=== PATIENT | female | born 1945 | race African-American/Black ===

== ENCOUNTER 2021-03-17 04:16 | Inpatient (IN) | payer OTHER ==
[2021-03-17 04:25] VITALS: BMI 29.0
[2021-03-17] MEDS ORDERED: ALBUTEROL SO4 2.5/IPRATROPIUM 0.5 INH SOL 3 ML VIAL.NEB. NEB ONE ×2 (04:27→04:47)
[2021-03-17 05:20] LABS: VENOUS BASE EXCESS -1.4 mmol/L (-2-2); VENOUS O2 SATURATION 97.5 % (70-80); VENOUS PCO2 43.1 mmHg (38-52); VENOUS PH 7.364 (7.310-7.410)
[2021-03-17 05:34] LABS: BASO % 0.4 % (0-2.0); EOS % 2.1 % (0-4.5); HEMATOCRIT 29.9 % (32.4-45.2); HEMOGLOBIN 9.3 GM/dL (10.7-15.3); MCH 22.8 pg (25.7-33.7); MCHC 31.1 g/dl (32.0-36.0); MEAN CELL VOLUME 73.4 fl (80-96); MONO % 10.2 % (3.8-10.2); NEUT % 58.3 % (42.8-82.8); PLATELET COUNT 740 K/MM3 (134-434); RBC 4.08 M/mm3 (3.60-5.2); RDW 21.2 % (11.6-15.6); WHITE BLOOD COUNT 9.9 K/mm3 (4.0-10.0)
[2021-03-17] MEDS ORDERED: SODIUM CHLORIDE 0.9% 500 ML INFUS.BAG IV ONE (05:37)
[2021-03-17] MEDS ORDERED: PIPERACILLIN/TAZOB 3.375 GM 3.375 GM in DEXTROSE 5%-WATER - 50 ML IVPB ONE (05:38)
[2021-03-17] MEDS ORDERED: DEXAMETHASONE SOD PHOSPHATE 10 MG/1 ML VIAL IVPUSH ONE (05:38)
[2021-03-17 05:40] LABS: EPI CELLS 36 /uL (0-25.1); HYALINE CASTS 5 /uL (0-3.1); URINE APPEARANCE TURBID; URINE BACTERIA >9,000 /uL (0-1359); URINE BILIRUBIN NEGATIVE (NEGATIVE); URINE COLOR YELLOW; URINE GLUCOSE (UA) NEGATIVE (NEGATIVE); URINE KETONE TRACE (NEGATIVE); URINE LEUK ESTERASE 3+ (NEGATIVE); URINE NITRITE NEGATIVE (NEGATIVE); URINE PROTEIN 2+ (NEGATIVE); URINE RBC 2980 /uL (0-23.9); URINE WBC 1242 /uL (0-25.8)
[2021-03-17] MEDS ORDERED: morphine SULFATE 4 MG/ML VIAL ONE (05:40)
[2021-03-17] MEDS ORDERED: DEXAMETHASONE SOD PHOSPHATE 10 MG/1 ML VIAL ONE (05:41)
[2021-03-17 05:53] LABS: CHLORIDE 102 mmol/L (98-107); SODIUM 135 mmol/L (136-145)
[2021-03-17 05:56] LABS: ALBUMIN 2.7 g/dl (3.4-5.0); ANION GAP 6 MMOL/L (8-16); BLOOD UREA NITROGEN 18.4 mg/dL (7-18); CALCIUM 8.5 mg/dL (8.5-10.1); CO2 27 mmol/L (21-32); GLUCOSE,RANDOM 120 mg/dL (74-106)
[2021-03-17 06:00] LABS: CREATININE 0.6 mg/dL (0.55-1.3); SGOT/AST 17 U/L (15-37); SGPT/ALT 15 U/L (13-61)
[2021-03-17] MEDS ORDERED: ACETAMINOPHEN INJECTION 100 ML IVPB ONE (06:00)
[2021-03-17] MEDS ORDERED: MAGNESIUM SULF 50% (8.12 MEQ/2 ML-1 GM VIAL) IVPB ONE (06:00)
[2021-03-17] MEDS ORDERED: PIPERACILLIN/TAZOB 3.375 GM 3.375 GM/50 ML BAG IVPB ONE (06:00)
[2021-03-17 06:01] LABS: BILIRUBIN,TOTAL 0.3 mg/dL (0.2-1); TOT PROT 8.1 g/dl (6.4-8.2)
[2021-03-17 06:03] LABS: ALK PHOS 121 U/L (45-117)
[2021-03-17] MEDS ORDERED: MAGNESIUM SULFATE IN WATER 2 GM/50 ML IVPB IVPB ONE (06:18)
[2021-03-17] MEDS ORDERED: ACETAMINOPHEN 1000 MG/100 ML VIAL (NON FORMULARY) IVPB ONE (06:42)
[2021-03-17 11:41] LABS: ANISOCYTOSIS 1+; MACROCYTOSIS 0; OVALOCYTE 1+; PLATELET ESTIMATE INCREASED; TEAR DROP CELLS 1+
[2021-03-17] MEDS ORDERED: LORazepam 0.5 MG TABLET PEG PRN (17:39)
[2021-03-17] MEDS ORDERED: ACETAMINOPHEN 325 MG TABLET (FP) PO PRN (17:39)
[2021-03-17] MEDS ORDERED: D5-1/2NS+20 MEQ KCL - 20 MEQ/1,000 ML INFUS.BAG IV SCH (17:45)
[2021-03-17] MEDS: ALBUTEROL SO4 2.5/IPRATROPIUM 0.5 INH SOL 3 ML VIAL.NEB. NEB SCH ×2 (18:49→21:11)
[2021-03-17] MEDS ORDERED: DEXTROSE 5%-WATER - 50 ML IVPB ONE (18:49)
[2021-03-17] MEDS ORDERED: PIPERACILLIN/TAZOBACTAM 3.375 GM VIAL IVPB ONE (18:49)
[2021-03-17] MEDS: PIPERACILLIN/TAZOB 3.375 GM 3.375 GM in DEXTROSE 5%-WATER - 50 ML IVPB SCH (19:04)
[2021-03-17] MEDS: hydrALAZINE HCL 10 MG TABLET PEG SCH (22:17)
[2021-03-17] MEDS: levETIRAcetam 500 MG/5 ML ORAL SOLUTION (UNIT-DOSE CUPS) PEG SCH (22:17)
[2021-03-17] MEDS: METOPROLOL TARTRATE 25 MG TABLET (FP) PEG SCH (22:17)
[2021-03-18] MEDS ORDERED: PIPERACILLIN/TAZOBACTAM 3.375 GM VIAL IVPB ONE ×3 (01:11→17:44)
[2021-03-18] MEDS ORDERED: DEXTROSE 5%-WATER - 50 ML IVPB ONE ×3 (01:11→17:45)
[2021-03-18] MEDS: PIPERACILLIN/TAZOB 3.375 GM 3.375 GM in DEXTROSE 5%-WATER - 50 ML IVPB SCH ×3 (01:31→18:02)
[2021-03-18] MEDS: ALBUTEROL SO4 2.5/IPRATROPIUM 0.5 INH SOL 3 ML VIAL.NEB. NEB SCH ×3 (09:10→20:15)
[2021-03-18] MEDS ORDERED: FAMOTIDINE 20 MG TABLET PEG SCH (10:00)
[2021-03-18 10:19] LABS: BASO % 0.5 % (0-2.0); EOS % 0.7 % (0-4.5); HEMATOCRIT 22.6 % (32.4-45.2); HEMOGLOBIN 7.1 GM/dL (10.7-15.3); LYMPH % 24.5 % (8-40); MCH 23.3 pg (25.7-33.7); MCHC 31.5 g/dl (32.0-36.0); MEAN CELL VOLUME 74.2 fl (80-96); MEAN PLT VOLUME 9.1 fl (7.5-11.1); MONO % 12.1 % (3.8-10.2); NEUT % 62.2 % (42.8-82.8); PLATELET COUNT 550 K/MM3 (134-434); RBC 3.05 M/mm3 (3.60-5.2); RDW 20.6 % (11.6-15.6); WHITE BLOOD COUNT 5.4 K/mm3 (4.0-10.0)
[2021-03-18] MEDS: levETIRAcetam 500 MG/5 ML ORAL SOLUTION (UNIT-DOSE CUPS) PEG SCH ×2 (10:39→22:08)
[2021-03-18] MEDS: hydrALAZINE HCL 10 MG TABLET PEG SCH ×2 (10:39→22:08)
[2021-03-18] MEDS: amLODIPine BESYLATE 5 MG TABLET (FP) PEG SCH (10:39)
[2021-03-18] MEDS: METOPROLOL TARTRATE 25 MG TABLET (FP) PEG SCH ×2 (10:39→22:08)
[2021-03-18 10:47] LABS: ALBUMIN 2.3 g/dl (3.4-5.0); BLOOD UREA NITROGEN 16.3 mg/dL (7-18)
[2021-03-18 10:48] LABS: CALCIUM 8.4 mg/dL (8.5-10.1)
[2021-03-18 10:52] LABS: BILIRUBIN,TOTAL 0.3 mg/dL (0.2-1); TOT PROT 6.7 g/dl (6.4-8.2)
[2021-03-18 11:09] LABS: CREATININE 0.6 mg/dL (0.55-1.3)
[2021-03-18] MEDS ORDERED: ACETAMINOPHEN 650 MG/20.3 ML ORAL SOLUTION (CUPS) GT PRN (11:27)
[2021-03-18] MEDS: LEVOTHYROXINE NA 25 MCG TABLET (FP) GT SCH (11:40)
[2021-03-18] MEDS: COLLAGENASE CLOSTRIDIUM HIST. 30 GRAMS TUBE TP SCH (13:31)
[2021-03-18] MEDS ORDERED: ACETAMINOPHEN 650 MG/20.3 ML ORAL SOLUTION (CUPS) PEG PRN (15:27)
[2021-03-18] MEDS ORDERED: AMINO ACIDS/PROTEIN HYDROLYS 30 ML LIQUID.PKT PO SCH (17:30)
[2021-03-18] MEDS ORDERED: FERRIC CARBOXYMALTOSE 750 MG in SODIUM CHLORIDE 250 ML IVPB ONE (17:42)
[2021-03-18] MEDS ORDERED: PIPERACILLIN/TAZOB 3.375 GM 3.375 GM in DEXTROSE 5%-WATER - 50 ML IVPB SCH (18:00)
[2021-03-18] MEDS: AMINO ACIDS/PROTEIN HYDROLYS 30 ML LIQUID.PKT PEG SCH (18:02)
[2021-03-18 21:55] LABS: URINE APPEARANCE CLEAR; URINE BILIRUBIN NEGATIVE (NEGATIVE); URINE COLOR YELLOW; URINE GLUCOSE (UA) NEGATIVE (NEGATIVE); URINE KETONE NEGATIVE (NEGATIVE); URINE LEUK ESTERASE NEGATIVE (NEGATIVE); URINE NITRITE NEGATIVE (NEGATIVE); URINE PROTEIN NEGATIVE (NEGATIVE)
[2021-03-19] MEDS ORDERED: PIPERACILLIN/TAZOBACTAM 3.375 GM VIAL IVPB ONE ×2 (01:46→09:08)
[2021-03-19] MEDS ORDERED: DEXTROSE 5%-WATER - 50 ML IVPB ONE ×2 (01:46→09:08)
[2021-03-19] MEDS: PIPERACILLIN/TAZOB 3.375 GM 3.375 GM in DEXTROSE 5%-WATER - 50 ML IVPB SCH ×2 (02:05→09:10)
[2021-03-19] MEDS: LEVOTHYROXINE NA 25 MCG TABLET (FP) GT SCH (06:08)
[2021-03-19] MEDS: ALBUTEROL SO4 2.5/IPRATROPIUM 0.5 INH SOL 3 ML VIAL.NEB. NEB SCH ×4 (08:26→21:00)
[2021-03-19 08:52] LABS: BASO % 0.6 % (0-2.0); EOS % 1.2 % (0-4.5); HEMATOCRIT 25.8 % (32.4-45.2); HEMOGLOBIN 8.2 GM/dL (10.7-15.3); LYMPH % 30.2 % (8-40); MCH 23.3 pg (25.7-33.7); MCHC 31.9 g/dl (32.0-36.0); MEAN CELL VOLUME 73.1 fl (80-96); MEAN PLT VOLUME 8.6 fl (7.5-11.1); MONO % 12.7 % (3.8-10.2); NEUT % 55.3 % (42.8-82.8); PLATELET COUNT 629 K/MM3 (134-434); RBC 3.53 M/mm3 (3.60-5.2); RDW 21.3 % (11.6-15.6); WHITE BLOOD COUNT 5.2 K/mm3 (4.0-10.0)
[2021-03-19] MEDS: levETIRAcetam 500 MG/5 ML ORAL SOLUTION (UNIT-DOSE CUPS) PEG SCH ×2 (09:10→22:27)
[2021-03-19] MEDS: AMINO ACIDS/PROTEIN HYDROLYS 30 ML LIQUID.PKT PEG SCH ×3 (09:11→16:56)
[2021-03-19] MEDS: FERROUS SO4 300 MG/5 ML ORAL SOLN UNIT DOSE CUPS GT SCH (09:11)
[2021-03-19] MEDS: METOPROLOL TARTRATE 25 MG TABLET (FP) PEG SCH ×2 (09:11→22:27)
[2021-03-19] MEDS: COLLAGENASE CLOSTRIDIUM HIST. 30 GRAMS TUBE TP SCH (09:11)
[2021-03-19] MEDS: hydrALAZINE HCL 10 MG TABLET PEG SCH ×2 (09:11→22:27)
[2021-03-19] MEDS: amLODIPine BESYLATE 5 MG TABLET (FP) PEG SCH (09:11)
[2021-03-19] MEDS: FAMOTIDINE 40 MG/5 ML ORAL SUSPENSION PEG SCH (09:11)
[2021-03-19] MEDS: AMOX TR/POTASSIUM CLAVULANATE 600 MG/5 ML GT SCH (16:55)
[2021-03-20] MEDS: LEVOTHYROXINE NA 25 MCG TABLET (FP) GT SCH (06:14)
[2021-03-20] MEDS: ALBUTEROL SO4 2.5/IPRATROPIUM 0.5 INH SOL 3 ML VIAL.NEB. NEB SCH ×2 (07:35→11:32)
[2021-03-20 08:28] LABS: BASO % 0.5 % (0-2.0); EOS % 1.6 % (0-4.5); HEMATOCRIT 26.5 % (32.4-45.2); HEMOGLOBIN 8.4 GM/dL (10.7-15.3); LYMPH % 24.6 % (8-40); MCH 23.3 pg (25.7-33.7); MCHC 31.8 g/dl (32.0-36.0); MEAN CELL VOLUME 73.3 fl (80-96); MEAN PLT VOLUME 8.4 fl (7.5-11.1); MONO % 8.9 % (3.8-10.2); NEUT % 64.4 % (42.8-82.8); PLATELET COUNT 630 K/MM3 (134-434); RBC 3.62 M/mm3 (3.60-5.2); RDW 21.1 % (11.6-15.6); WHITE BLOOD COUNT 6.9 K/mm3 (4.0-10.0)
[2021-03-20 09:21] LABS: ANISOCYTOSIS 3+; MACROCYTOSIS 0; PLATELET ESTIMATE INCREASED
[2021-03-20] MEDS ORDERED: PT OWN MED DRAWER 7, Y5N ONE (09:50)
[2021-03-20] MEDS: AMINO ACIDS/PROTEIN HYDROLYS 30 ML LIQUID.PKT PEG SCH ×2 (10:26→16:03)
[2021-03-20] MEDS: hydrALAZINE HCL 10 MG TABLET PEG SCH (10:26)
[2021-03-20] MEDS: FAMOTIDINE 40 MG/5 ML ORAL SUSPENSION PEG SCH (10:26)
[2021-03-20] MEDS: levETIRAcetam 500 MG/5 ML ORAL SOLUTION (UNIT-DOSE CUPS) PEG SCH (10:26)
[2021-03-20] MEDS: FERROUS SO4 300 MG/5 ML ORAL SOLN UNIT DOSE CUPS GT SCH (10:26)
[2021-03-20] MEDS: amLODIPine BESYLATE 5 MG TABLET (FP) PEG SCH (10:26)
[2021-03-20] MEDS: METOPROLOL TARTRATE 25 MG TABLET (FP) PEG SCH (10:26)
[2021-03-20] MEDS: COLLAGENASE CLOSTRIDIUM HIST. 30 GRAMS TUBE TP SCH (10:28)
[2021-03-20] MEDS: AMOX TR/POTASSIUM CLAVULANATE 600 MG/5 ML GT SCH (10:28)
[2021-03-20 16:44] VITALS: BP 137/74; PULSE 97; TEMP 99.2
== END 2021-03-20 12:29 | DRG 689 ==
LOC: JER 04:16 → JERBED 07:19 → J5S 18:05
PROVIDERS: ADMIT Family Medicine; ATTEND Family Medicine
PROC: 5A1945Z Respiratory Ventilation, 24-96 Consecutive Hours (ICD-10-PCS; 2021-03-17)
PROC: 30233N1 Transfusion of Nonautologous Red Blood Cells into Peripheral Vein, Percutaneous Approach (ICD-10-PCS; principal; 2021-03-18)
DX: N39.0 Urinary tract infection, site not specified (principal); L89.94 Pressure ulcer of unspecified site, stage 4; J96.11 Chronic respiratory failure with hypoxia; Z99.11 Dependence on respirator [ventilator] status; Z93.0 Tracheostomy status; Z93.1 Gastrostomy status; I10 Essential (primary) hypertension; J44.9 Chronic obstructive pulmonary disease, unspecified; G40.909 Epilepsy, unspecified, not intractable, without status epilepticus; K21.9 Gastro-esophageal reflux disease without esophagitis; E03.9 Hypothyroidism, unspecified; D50.9 Iron deficiency anemia, unspecified; E66.9 Obesity, unspecified; Z68.29 Body mass index [BMI] 29.0-29.9, adult; E86.0 Dehydration
CPT/HCPCS: 36415; 71045-TC-FY; 80053; 81003; 82550; 82607; 82728; 82803; 83540; 83550; 83605; 83880; 84443; 84484; 85025; 87040; 87086; 93005; 93010; 94002; 94640; 97161-GP; 99285-25; C9803; J0131; J1100; J1439; U0003; U0005

== ENCOUNTER 2022-06-05 13:48 | Inpatient (IN) | payer OTHER ==
[2022-06-05] MEDS ORDERED: ACETAMINOPHEN 1000 MG/100 ML BAG IVPB ONE ×2 (14:13→21:35)
[2022-06-05] MEDS ORDERED: ACETAMINOPHEN INJECTION 100 ML IVPB ONE ×2 (14:33→21:37)
[2022-06-05] MEDS ORDERED: VANCOMYCIN 1 GM in D5W (PRE-DOCKED) 1,000 MG/250 ML IVPB ONE (14:56)
[2022-06-05] MEDS ORDERED: PIPERACILLIN/TAZOB 4.5 GM 4.5 GM in DEXTROSE 5%-WATER 100 ML IVPB ONE (14:56)
[2022-06-05] MEDS ORDERED: VANCOMYCIN/WATER FOR INJ (PEG) 1,000 MG/200 ML BAG IVPB ONE (16:07)
[2022-06-05] MEDS ORDERED: PIPERACILLIN IVPB ONE (16:07)
[2022-06-05] MEDS ORDERED: TAZOB IVPB ONE (16:07)
[2022-06-05 16:23] LABS: VENOUS BASE EXCESS 2.2 mmol/L (-2-2); VENOUS O2 SATURATION 46.3 % (70-80); VENOUS PCO2 44.5 mmHg (38-52); VENOUS PH 7.403 (7.310-7.410)
[2022-06-05 16:28] LABS: BASO % 0.3 % (0-2.0); EOS % 0.1 % (0-4.5); HEMATOCRIT 24.6 % (32.4-45.2); HEMOGLOBIN 7.8 GM/dL (10.7-15.3); LYMPH % 6.2 % (8-40); MCH 24.6 pg (25.7-33.7); MCHC 31.8 g/dl (32.0-36.0); MEAN CELL VOLUME 77.4 fl (80-96); MEAN PLT VOLUME 8.3 fl (7.5-11.1); MONO % 7.6 % (3.8-10.2); NEUT % 85.8 % (42.8-82.8); RBC 3.17 M/mm3 (3.60-5.2); RDW 17.9 % (11.6-15.6); WHITE BLOOD COUNT 24.2 K/mm3 (4.0-10.0)
[2022-06-05 16:32] LABS: EPI CELLS 25 /uL (0-25.1); HYALINE CASTS 2 /uL (0-3.1); PH,URINE 6.5 (5.0-8.0); URINE APPEARANCE CLOUDY; URINE BILIRUBIN NEGATIVE (NEGATIVE); URINE COLOR YELLOW; URINE GLUCOSE (UA) NEGATIVE (NEGATIVE); URINE KETONE NEGATIVE (NEGATIVE); URINE LEUK ESTERASE 3+ (NEGATIVE); URINE NITRITE POSITIVE (NEGATIVE); URINE PROTEIN 2+ (NEGATIVE); URINE RBC 19 /uL (0-23.9); URINE WBC 812 /uL (0-25.8)
[2022-06-05 16:40] LABS: INR 1.39 (0.83-1.09)
[2022-06-05 16:53] LABS: CHLORIDE 95 mmol/L (98-107); SODIUM 134 mmol/L (136-145)
[2022-06-05 16:55] LABS: ANION GAP 10 MMOL/L (8-16); BLOOD UREA NITROGEN 30.8 mg/dL (7-18); CO2 29 mmol/L (21-32); GLUCOSE,RANDOM 124 mg/dL (74-106); LIPASE 402 U/L (73-393); MAGNESIUM 2.2 mg/dL (1.8-2.4)
[2022-06-05 16:56] LABS: ALBUMIN 2.2 g/dl (3.4-5.0)
[2022-06-05 16:58] LABS: SGPT/ALT 32 U/L (13-61)
[2022-06-05 16:59] LABS: SGOT/AST 31 U/L (15-37)
[2022-06-05 17:00] LABS: BILIRUBIN,TOTAL 0.4 mg/dL (0.2-1)
[2022-06-05 17:01] LABS: ALK PHOS 168 U/L (45-117)
[2022-06-05 17:17] LABS: ANISOCYTOSIS 3+; MACROCYTOSIS 1+; PLATELET COUNT 1163 10^3/uL (134-434); PLATELET ESTIMATE INCREASED
[2022-06-05] MEDS ORDERED: SODIUM CHLORIDE 0.9% 500 ML INFUS.BAG IV ONE (17:39)
[2022-06-05] MEDS ORDERED: INSULIN REGULAR HUMAN 100 UNITS/ML *VIAL IVPUSH ONE (17:40)
[2022-06-05] MEDS ORDERED: DEXTROSE 50%-WATER - 25 GM/50 ML VIAL IVPUSH ONE (17:40)
[2022-06-05] MEDS ORDERED: CALCIUM GLUCONATE 10% - 1,000 MG/10 ML VIAL IVPB ONE (17:40)
[2022-06-05 17:48] LABS: URINE BACTERIA 130 /uL (0-1359)
[2022-06-05] MEDS ORDERED: DEXTROSE 50%-WATER 25 GM/50 ML DISP.SYRIN ONE (17:50)
[2022-06-05] MEDS ORDERED: CALCIUM GLUCONATE 10% - 1,000 MG/10 ML VIAL ONE (17:50)
[2022-06-05] MEDS ORDERED: SODIUM ZIRCONIUM CYCLOSILICATE (LOKELMA) 5 GM PACKET ONE (18:26)
[2022-06-05] MEDS ORDERED: SODIUM ZIRCONIUM CYCLOSILICATE (LOKELMA) 5 GM PACKET PO ONE (18:38)
[2022-06-05 22:11] LABS: BASO % 0.2 % (0-2.0); HEMATOCRIT 23.6 % (32.4-45.2); HEMOGLOBIN 7.6 GM/dL (10.7-15.3); LYMPH % 2.7 % (8-40); MCH 24.7 pg (25.7-33.7); MCHC 32.2 g/dl (32.0-36.0); MEAN CELL VOLUME 76.9 fl (80-96); MEAN PLT VOLUME 7.9 fl (7.5-11.1); MONO % 4.3 % (3.8-10.2); NEUT % 92.8 % (42.8-82.8); PLATELET COUNT 1077 10^3/uL (134-434); RBC 3.06 M/mm3 (3.60-5.2); RDW 18.1 % (11.6-15.6); WHITE BLOOD COUNT 20.6 K/mm3 (4.0-10.0)
[2022-06-05 22:26] LABS: BLOOD UREA NITROGEN 26.3 mg/dL (7-18); CALCIUM 8.1 mg/dL (8.5-10.1)
[2022-06-05 22:30] LABS: CREATININE 0.8 mg/dL (0.55-1.3)
[2022-06-05] MEDS ORDERED: levETIRAcetam 500 MG/5 ML INJECTION VIAL IVPB ONE ×2 (22:36→22:52)
[2022-06-05 23:10] LABS: ANISOCYTOSIS 1+; MACROCYTOSIS 1+; PLATELET ESTIMATE INCREASED
[2022-06-05 23:24] LABS: CALCIUM 8.1 mg/dL (8.5-10.1)
[2022-06-05 23:25] LABS: BLOOD UREA NITROGEN 27.1 mg/dL (7-18)
[2022-06-05 23:28] LABS: CREATININE 0.8 mg/dL (0.55-1.3)
[2022-06-06] MEDS ORDERED: ACETAMINOPHEN 1000 MG/100 ML BAG IVPB PRN (03:00)
[2022-06-06] MEDS ORDERED: levETIRAcetam 500 MG/5 ML INJECTION VIAL IVPB ONE ×2 (04:50→05:59)
[2022-06-06] MEDS ORDERED: ALBUTEROL SO4 2.5/IPRATROPIUM 0.5 INH SOL 3 ML VIAL.NEB. NEB PRN (05:05)
[2022-06-06] MEDS ORDERED: PIPERACILLIN/TAZOB 3.375 GM 3.375 GM/50 ML BAG IVPB ONE ×2 (05:55→10:21)
[2022-06-06] MEDS: PIPERACILLIN/TAZOB 3.375 GM 3.375 GM in DEXTROSE 5%-WATER - 50 ML IVPB SCH ×3 (05:55→22:14)
[2022-06-06] MEDS ORDERED: VANCOMYCIN/WATER FOR INJ (PEG) 1,000 MG/200 ML BAG IVPB ONE (06:03)
[2022-06-06] MEDS: VANCOMYCIN 1 GM/200 ML PREMIX BAG IVPB SCH ×2 (06:22→20:12)
[2022-06-06] MEDS ORDERED: LEVOTHYROXINE NA 25 MCG TABLET (FP) ONE (07:12)
[2022-06-06] MEDS: LEVOTHYROXINE NA 25 MCG TABLET (FP) GT SCH (07:25)
[2022-06-06] MEDS ORDERED: ACETAMINOPHEN INJECTION 100 ML IVPB ONE (07:37)
[2022-06-06 08:03] LABS: BASO % 0.6 % (0-2.0); HEMATOCRIT 22.9 % (32.4-45.2); HEMOGLOBIN 7.4 GM/dL (10.7-15.3); LYMPH % 5.3 % (8-40); MCHC 32.2 g/dl (32.0-36.0); MEAN CELL VOLUME 77.5 fl (80-96); MEAN PLT VOLUME 8.3 fl (7.5-11.1); MONO % 6.7 % (3.8-10.2); NEUT % 87.4 % (42.8-82.8); PLATELET COUNT 1012 10^3/uL (134-434); RBC 2.96 M/mm3 (3.60-5.2); RDW 17.4 % (11.6-15.6); WHITE BLOOD COUNT 18.9 K/mm3 (4.0-10.0)
[2022-06-06 08:14] LABS: CALCIUM 8.1 mg/dL (8.5-10.1); MAGNESIUM 2.3 mg/dL (1.8-2.4)
[2022-06-06 08:15] LABS: BLOOD UREA NITROGEN 25.8 mg/dL (7-18)
[2022-06-06 08:18] LABS: CREATININE 0.8 mg/dL (0.55-1.3); PHOSPHOROUS 2.9 mg/dL (2.5-4.9)
[2022-06-06 08:20] LABS: INR 1.4 (0.83-1.09); PROTHROMBIN TIME (PATIENT) 16.2 SEC (9.7-13.0)
[2022-06-06 08:23] LABS: ACTIVATED PTT 27.7 SECONDS (25.2-36.5)
[2022-06-06] MEDS ORDERED: ASPIRIN 81 MG CHEWABLE TABLETS ONE (10:12)
[2022-06-06] MEDS: AMINO ACIDS/PROTEIN HYDROLYS 30 ML LIQUID.PKT PEG SCH ×3 (10:19→18:12)
[2022-06-06] MEDS: levETIRAcetam 500 MG/5 ML ORAL SOLUTION (UNIT-DOSE CUPS) PEG SCH ×2 (10:20→22:15)
[2022-06-06] MEDS: ASCORBIC ACID 500 MG/5 ML UNIT DOSE CUP PEG SCH (10:20)
[2022-06-06] MEDS: FERROUS SO4 300 MG/5 ML ORAL SOLN UNIT DOSE CUPS GT SCH (10:20)
[2022-06-06] MEDS: DOCUSATE NA 100 MG/10 ML UNIT-DOSE CUPS PEG SCH ×2 (10:20→22:15)
[2022-06-06] MEDS: FAMOTIDINE 40 MG/5 ML ORAL SUSPENSION PEG SCH (10:20)
[2022-06-06] MEDS: ASPIRIN 81 MG CHEWABLE TABLETS PEG SCH (10:20)
[2022-06-06] MEDS ORDERED: FUROSEMIDE 40 MG/4 ML INJECTABLE VIAL IVPUSH ONE (11:20)
[2022-06-06] MEDS ORDERED: SODIUM ZIRCONIUM CYCLOSILICATE (LOKELMA) 5 GM PACKET PO ONE (17:55)
[2022-06-06] MEDS ORDERED: ACETAMINOPHEN 650 MG/20.3 ML ORAL SOLUTION (CUPS) ONE (18:09)
[2022-06-06] MEDS: ACETAMINOPHEN 650 MG/20.3 ML ORAL SOLUTION (CUPS) PEG PRN (18:11)
[2022-06-06] MEDS: POLYETHYLENE GLYCOL (HEALTHYLAX) 3350 17 GM PACKET GT SCH (22:15)
[2022-06-06] MEDS: BETAMETHASONE VALERATE 0.1% CREAM 15 GM TUBE TP SCH (22:57)
[2022-06-07] MEDS ORDERED: ACETAMINOPHEN 650 MG/20.3 ML ORAL SOLUTION (CUPS) PO PRN (03:00)
[2022-06-07] MEDS ORDERED: VANCOMYCIN 1 GM/200 ML PREMIX BAG IVPB SCH (04:00)
[2022-06-07] MEDS: ACETAMINOPHEN 650 MG/20.3 ML ORAL SOLUTION (CUPS) PEG PRN ×3 (06:30→23:32)
[2022-06-07] MEDS: LEVOTHYROXINE NA 25 MCG TABLET (FP) GT SCH (06:32)
[2022-06-07] MEDS: PANTOPRAZOLE SODIUM 40 MG VIAL IVPUSH SCH (10:44)
[2022-06-07] MEDS: DOCUSATE NA 100 MG/10 ML UNIT-DOSE CUPS PEG SCH ×2 (11:00→23:16)
[2022-06-07] MEDS: FERROUS SO4 300 MG/5 ML ORAL SOLN UNIT DOSE CUPS GT SCH (11:00)
[2022-06-07] MEDS: POLYETHYLENE GLYCOL (HEALTHYLAX) 3350 17 GM PACKET GT SCH ×2 (11:00→23:15)
[2022-06-07] MEDS: levETIRAcetam 500 MG/5 ML ORAL SOLUTION (UNIT-DOSE CUPS) PEG SCH ×2 (11:00→23:16)
[2022-06-07] MEDS: FAMOTIDINE 40 MG/5 ML ORAL SUSPENSION PEG SCH (11:00)
[2022-06-07] MEDS: ASCORBIC ACID 500 MG/5 ML UNIT DOSE CUP PEG SCH (11:00)
[2022-06-07] MEDS: AMINO ACIDS/PROTEIN HYDROLYS 30 ML LIQUID.PKT PEG SCH ×3 (11:01→17:41)
[2022-06-07] MEDS: ASPIRIN 81 MG CHEWABLE TABLETS PEG SCH (11:01)
[2022-06-07] MEDS ORDERED: PIPERACILLIN/TAZOB 3.375 GM 3.375 GM in DEXTROSE 5%-WATER - 50 ML IVPB SCH (12:15)
[2022-06-07] MEDS: MEROPENEM 1 GM in DEXTROSE 5%-WATER 100 ML IVPB SCH ×2 (12:53→18:22)
[2022-06-07] MEDS: PIPERACILLIN/TAZOB 3.375 GM 3.375 GM in DEXTROSE 5%-WATER - 50 ML IVPB SCH ×2 (12:59→13:00)
[2022-06-07 13:08] VITALS: BMI 24.3
[2022-06-07] MEDS: BETAMETHASONE VALERATE 0.1% CREAM 15 GM TUBE TP SCH (23:16)
[2022-06-08] MEDS: MEROPENEM 1 GM in DEXTROSE 5%-WATER 100 ML IVPB SCH ×3 (01:34→17:27)
[2022-06-08] MEDS: LEVOTHYROXINE NA 25 MCG TABLET (FP) GT SCH (06:10)
[2022-06-08] MEDS ORDERED: ACETAMINOPHEN 1000 MG/100 ML BAG IVPB ONE (09:11)
[2022-06-08] MEDS: PANTOPRAZOLE SODIUM 40 MG VIAL IVPUSH SCH (10:40)
[2022-06-08] MEDS: DEXTROSE 5%-NORMAL SALINE 1,000 ML IV SCH (10:40)
[2022-06-08] MEDS: ASCORBIC ACID 500 MG/5 ML UNIT DOSE CUP PEG SCH (10:41)
[2022-06-08] MEDS: levETIRAcetam 500 MG/5 ML ORAL SOLUTION (UNIT-DOSE CUPS) PEG SCH ×2 (10:41→21:51)
[2022-06-08] MEDS: FERROUS SO4 300 MG/5 ML ORAL SOLN UNIT DOSE CUPS GT SCH (10:41)
[2022-06-08] MEDS: POLYETHYLENE GLYCOL (HEALTHYLAX) 3350 17 GM PACKET GT SCH ×2 (10:41→21:52)
[2022-06-08] MEDS: AMINO ACIDS/PROTEIN HYDROLYS 30 ML LIQUID.PKT PEG SCH ×3 (10:41→17:27)
[2022-06-08] MEDS: FAMOTIDINE 40 MG/5 ML ORAL SUSPENSION PEG SCH (10:42)
[2022-06-08] MEDS: DOCUSATE NA 100 MG/10 ML UNIT-DOSE CUPS PEG SCH ×2 (10:43→21:51)
[2022-06-08] MEDS: ASPIRIN 81 MG CHEWABLE TABLETS PEG SCH (10:44)
[2022-06-08 11:20] LABS: HEMATOCRIT 26.3 % (32.4-45.2); HEMOGLOBIN 8.5 GM/dL (10.7-15.3); MCHC 32.5 g/dl (32.0-36.0); MEAN CELL VOLUME 77.1 fl (80-96); MEAN PLT VOLUME 8.4 fl (7.5-11.1); PLATELET COUNT 981 10^3/uL (134-434); RBC 3.41 M/mm3 (3.60-5.2); RDW 18.1 % (11.6-15.6); WHITE BLOOD COUNT 20.2 K/mm3 (4.0-10.0)
[2022-06-08 11:50] LABS: ALBUMIN 1.9 g/dl (3.4-5.0); BLOOD UREA NITROGEN 23.4 mg/dL (7-18); CALCIUM 8.6 mg/dL (8.5-10.1)
[2022-06-08 11:53] LABS: BILIRUBIN,TOTAL 0.6 mg/dL (0.2-1); CREATININE 0.6 mg/dL (0.55-1.3); TOT PROT 6.5 g/dl (6.4-8.2)
[2022-06-08 12:41] LABS: ANISOCYTOSIS 0; HELMET CELLS 0; HOWELL-JOLLY BODIES 0; MACROCYTOSIS 0; OVALOCYTE 0; ROULEAU 0; SICKELED CELLS 0; TARGET CELLS 0; TEAR DROP CELLS 0; TOXIC GRANULATION 0
[2022-06-08] MEDS: BETAMETHASONE VALERATE 0.1% CREAM 15 GM TUBE TP SCH (21:52)
[2022-06-09] MEDS: DEXTROSE 5%-NORMAL SALINE 1,000 ML IV SCH ×3 (01:27→17:08)
[2022-06-09] MEDS: MEROPENEM 1 GM in DEXTROSE 5%-WATER 100 ML IVPB SCH ×3 (01:28→17:17)
[2022-06-09] MEDS: LEVOTHYROXINE NA 25 MCG TABLET (FP) GT SCH (06:22)
[2022-06-09] MEDS: ACETAMINOPHEN 650 MG/20.3 ML ORAL SOLUTION (CUPS) PEG PRN ×2 (06:25→18:48)
[2022-06-09] MEDS: PANTOPRAZOLE SODIUM 40 MG VIAL IVPUSH SCH (09:59)
[2022-06-09] MEDS: DOCUSATE NA 100 MG/10 ML UNIT-DOSE CUPS PEG SCH ×2 (10:58→22:05)
[2022-06-09] MEDS: AMINO ACIDS/PROTEIN HYDROLYS 30 ML LIQUID.PKT PEG SCH ×3 (10:58→17:18)
[2022-06-09] MEDS: ASPIRIN 81 MG CHEWABLE TABLETS PEG SCH (10:58)
[2022-06-09] MEDS: levETIRAcetam 500 MG/5 ML ORAL SOLUTION (UNIT-DOSE CUPS) PEG SCH ×2 (10:58→22:05)
[2022-06-09] MEDS: POLYETHYLENE GLYCOL (HEALTHYLAX) 3350 17 GM PACKET GT SCH ×2 (10:59→22:05)
[2022-06-09] MEDS: ASCORBIC ACID 500 MG/5 ML UNIT DOSE CUP PEG SCH (10:59)
[2022-06-09] MEDS: FAMOTIDINE 40 MG/5 ML ORAL SUSPENSION PEG SCH (10:59)
[2022-06-09] MEDS: FERROUS SO4 300 MG/5 ML ORAL SOLN UNIT DOSE CUPS GT SCH (10:59)
[2022-06-09] MEDS: SODIUM HYPOCHLORITE 0.25%- 473 ML BULK BOTTLE TP SCH (18:29)
[2022-06-09] MEDS: BETAMETHASONE VALERATE 0.1% CREAM 15 GM TUBE TP SCH (22:04)
[2022-06-09] MEDS ORDERED: FENTANYL PATCH WASTE MC PRN (22:25)
[2022-06-09] MEDS ORDERED: SCOPOLAMINE HYDROBROMIDE 1 PATCH PATCH.TD72 TD SCH (22:30)
[2022-06-09] MEDS ORDERED: fentaNYL 25mcg/hr PATCH.TD72 TD SCH (22:30)
[2022-06-10] MEDS: LEVOTHYROXINE NA 25 MCG TABLET (FP) GT SCH (06:26)
[2022-06-10] MEDS: POLYETHYLENE GLYCOL (HEALTHYLAX) 3350 17 GM PACKET GT SCH (10:31)
[2022-06-10] MEDS: DEXTROSE 5%-NORMAL SALINE 1,000 ML IV SCH (10:32)
[2022-06-10] MEDS: ASCORBIC ACID 500 MG/5 ML UNIT DOSE CUP PEG SCH (10:32)
[2022-06-10] MEDS: levETIRAcetam 500 MG/5 ML ORAL SOLUTION (UNIT-DOSE CUPS) PEG SCH ×2 (10:33→21:20)
[2022-06-10] MEDS: SODIUM HYPOCHLORITE 0.25%- 473 ML BULK BOTTLE TP SCH (10:33)
[2022-06-10 13:48] LABS: ALBUMIN 1.7 g/dl (3.4-5.0)
[2022-06-10 13:50] LABS: BLOOD UREA NITROGEN 11.4 mg/dL (7-18)
[2022-06-10 13:52] LABS: CALCIUM 8.2 mg/dL (8.5-10.1)
[2022-06-10 13:53] LABS: CREATININE 0.4 mg/dL (0.55-1.3)
[2022-06-10 13:55] LABS: BILIRUBIN,TOTAL 0.5 mg/dL (0.2-1); TOT PROT 5.9 g/dl (6.4-8.2)
[2022-06-10] MEDS: BETAMETHASONE VALERATE 0.1% CREAM 15 GM TUBE TP SCH (21:20)
[2022-06-11] MEDS: DEXTROSE 5%-NORMAL SALINE 1,000 ML IV SCH ×2 (01:07→10:48)
[2022-06-11] MEDS: LEVOTHYROXINE NA 25 MCG TABLET (FP) GT SCH (06:18)
[2022-06-11] MEDS: levETIRAcetam 500 MG/5 ML ORAL SOLUTION (UNIT-DOSE CUPS) PEG SCH ×2 (11:00→21:09)
[2022-06-11] MEDS: ASCORBIC ACID 500 MG/5 ML UNIT DOSE CUP PEG SCH (11:00)
[2022-06-11] MEDS: SODIUM HYPOCHLORITE 0.25%- 473 ML BULK BOTTLE TP SCH (11:03)
[2022-06-11] MEDS ORDERED: KCL 10 MEQ IVPB 10 MEQ/100 ML INFUS.BAG IVPB SCH (15:00)
[2022-06-11] MEDS: D5-1/2NS+20 MEQ KCL - 20 MEQ/1,000 ML INFUS.BAG IV SCH (15:00)
[2022-06-11] MEDS: ACETAMINOPHEN 650 MG/20.3 ML ORAL SOLUTION (CUPS) PEG PRN (21:09)
[2022-06-11] MEDS: BETAMETHASONE VALERATE 0.1% CREAM 15 GM TUBE TP SCH (23:18)
[2022-06-12] MEDS: LEVOTHYROXINE NA 25 MCG TABLET (FP) GT SCH (06:07)
[2022-06-12] MEDS ORDERED: AMINO ACIDS/PROTEIN HYDROLYS 30 ML LIQUID.PKT PO SCH (08:00)
[2022-06-12] MEDS: D5-1/2NS+20 MEQ KCL - 20 MEQ/1,000 ML INFUS.BAG IV SCH ×2 (08:15→14:40)
[2022-06-12] MEDS: ASCORBIC ACID 500 MG/5 ML UNIT DOSE CUP PEG SCH (09:05)
[2022-06-12] MEDS: levETIRAcetam 500 MG/5 ML ORAL SOLUTION (UNIT-DOSE CUPS) PEG SCH (09:06)
[2022-06-12 09:17] LABS: CALCIUM 8.6 mg/dL (8.5-10.1)
[2022-06-12 09:18] LABS: ALBUMIN 1.9 g/dl (3.4-5.0); BLOOD UREA NITROGEN 7.8 mg/dL (7-18)
[2022-06-12 09:21] LABS: CREATININE 0.4 mg/dL (0.55-1.3)
[2022-06-12 09:22] LABS: BILIRUBIN,TOTAL 0.6 mg/dL (0.2-1)
[2022-06-12 09:23] LABS: TOT PROT 6.8 g/dl (6.4-8.2)
[2022-06-12] MEDS ORDERED: ZINC SULFATE 220 MG CAPSULE (FP) PO SCH (10:00)
[2022-06-12] MEDS ORDERED: MULTIVIT-MINERALS ORAL LIQUID PEG SCH (10:00)
[2022-06-12] MEDS ORDERED: COLLAGENASE CLOSTRIDIUM HIST. 30 GRAMS TUBE TP SCH (10:00)
[2022-06-12] MEDS: fentaNYL 25mcg/hr PATCH.TD72 TD SCH (11:21)
[2022-06-12] MEDS: SCOPOLAMINE HYDROBROMIDE 1 PATCH PATCH.TD72 TD SCH (11:27)
[2022-06-13] MEDS: levETIRAcetam 500 MG/5 ML ORAL SOLUTION (UNIT-DOSE CUPS) PEG SCH ×3 (10:53→21:04)
[2022-06-13] MEDS: D5-1/2NS+20 MEQ KCL - 20 MEQ/1,000 ML INFUS.BAG IV SCH (21:04)
[2022-06-13] MEDS: ACETAMINOPHEN 650 MG/20.3 ML ORAL SOLUTION (CUPS) PEG PRN (21:06)
[2022-06-14] MEDS: levETIRAcetam 500 MG/5 ML ORAL SOLUTION (UNIT-DOSE CUPS) PEG SCH ×2 (11:36→22:45)
[2022-06-14] MEDS: D5-1/2NS+20 MEQ KCL - 20 MEQ/1,000 ML INFUS.BAG IV SCH (14:39)
[2022-06-14] MEDS: ACETAMINOPHEN 650 MG/20.3 ML ORAL SOLUTION (CUPS) PEG PRN (17:51)
[2022-06-15] MEDS: levETIRAcetam 500 MG/5 ML ORAL SOLUTION (UNIT-DOSE CUPS) PEG SCH ×2 (10:04→21:36)
[2022-06-15] MEDS: fentaNYL 25mcg/hr PATCH.TD72 TD SCH (12:44)
[2022-06-15] MEDS: SCOPOLAMINE HYDROBROMIDE 1 PATCH PATCH.TD72 TD SCH (12:45)
[2022-06-15] MEDS: D5-1/2NS+20 MEQ KCL - 20 MEQ/1,000 ML INFUS.BAG IV SCH (14:32)
[2022-06-15] MEDS: ACETAMINOPHEN 650 MG/20.3 ML ORAL SOLUTION (CUPS) PEG PRN (18:51)
[2022-06-16] MEDS: D5-1/2NS+20 MEQ KCL - 20 MEQ/1,000 ML INFUS.BAG IV SCH (02:27)
[2022-06-16] MEDS: ACETAMINOPHEN 650 MG/20.3 ML ORAL SOLUTION (CUPS) PEG PRN ×3 (02:49→22:21)
[2022-06-16] MEDS: levETIRAcetam 500 MG/5 ML ORAL SOLUTION (UNIT-DOSE CUPS) PEG SCH ×2 (10:05→22:01)
[2022-06-16 15:55] LABS: ALBUMIN 1.7 g/dl (3.4-5.0); BILIRUBIN,TOTAL 1.9 mg/dL (0.2-1); BLOOD UREA NITROGEN 4.4 mg/dL (7-18); CALCIUM 8.1 mg/dL (8.5-10.1); CREATININE 0.4 mg/dL (0.55-1.3); TOT PROT 6.1 g/dl (6.4-8.2)
[2022-06-16] MEDS: AMINO ACIDS/PROTEIN HYDROLYS 30 ML LIQUID.PKT PEG SCH (17:19)
[2022-06-17 09:30] LABS: ALBUMIN 1.6 g/dl (3.4-5.0); BLOOD UREA NITROGEN 7.8 mg/dL (7-18)
[2022-06-17 09:33] LABS: CREATININE 0.4 mg/dL (0.55-1.3)
[2022-06-17 09:35] LABS: BILIRUBIN,TOTAL 0.5 mg/dL (0.2-1); TOT PROT 6.4 g/dl (6.4-8.2)
[2022-06-17 10:31] LABS: HEMATOCRIT 24.1 % (32.4-45.2); HEMOGLOBIN 7.9 GM/dL (10.7-15.3); MCH 25.2 pg (25.7-33.7); MCHC 32.6 g/dl (32.0-36.0); MEAN CELL VOLUME 77.3 fl (80-96); MEAN PLT VOLUME 8.3 fl (7.5-11.1); PLATELET COUNT 470 10^3/uL (134-434); RBC 3.13 M/mm3 (3.60-5.2); RDW 19.1 % (11.6-15.6); WHITE BLOOD COUNT 15.3 K/mm3 (4.0-10.0)
[2022-06-17] MEDS: levETIRAcetam 500 MG/5 ML ORAL SOLUTION (UNIT-DOSE CUPS) PEG SCH ×2 (11:19→22:34)
[2022-06-17] MEDS: MULTIVIT-MINERALS ORAL LIQUID GT SCH (11:19)
[2022-06-17] MEDS: AMINO ACIDS/PROTEIN HYDROLYS 30 ML LIQUID.PKT PEG SCH ×3 (11:21→17:47)
[2022-06-17] MEDS: ACETAMINOPHEN 650 MG/20.3 ML ORAL SOLUTION (CUPS) PEG PRN ×2 (11:57→18:15)
[2022-06-17 13:43] LABS: EPI CELLS 3 /uL (0-25.1); HYALINE CASTS 7 /uL (0-3.1); PH,URINE 5.5 (5.0-8.0); URINE APPEARANCE CLEAR; URINE BACTERIA >9,000 /uL (0-1359); URINE BILIRUBIN NEGATIVE (NEGATIVE); URINE COLOR DK YELLOW; URINE GLUCOSE (UA) NEGATIVE (NEGATIVE); URINE KETONE NEGATIVE (NEGATIVE); URINE LEUK ESTERASE 2+ (NEGATIVE); URINE NITRITE POSITIVE (NEGATIVE); URINE PROTEIN 1+ (NEGATIVE); URINE RBC 5 /uL (0-23.9); URINE WBC 176 /uL (0-25.8)
[2022-06-17] MEDS: COLLAGENASE CLOSTRIDIUM HIST. 30 GRAMS TUBE TP SCH (17:45)
[2022-06-17] MEDS: SODIUM HYPOCHLORITE 0.5% 473 ML- BULK BOTTLE TP SCH ×2 (17:48→17:56)
[2022-06-17] MEDS ORDERED: PIPERACILLIN/TAZOB 3.375 GM 3.375 GM in DEXTROSE 5%-WATER - 50 ML IVPB SCH (18:00)
[2022-06-17] MEDS: PIPERACILLIN/TAZOB 4.5 GM 4.5 GM in DEXTROSE 5%-WATER 100 ML IVPB SCH (18:13)
[2022-06-18] MEDS: PIPERACILLIN/TAZOB 4.5 GM 4.5 GM in DEXTROSE 5%-WATER 100 ML IVPB SCH ×3 (01:39→17:13)
[2022-06-18] MEDS: AMINO ACIDS/PROTEIN HYDROLYS 30 ML LIQUID.PKT PEG SCH ×3 (09:15→17:13)
[2022-06-18 09:49] LABS: BASO % 0.3 % (0-2.0); EOS % 0.1 % (0-4.5); HEMATOCRIT 21.4 % (32.4-45.2); HEMOGLOBIN 7.1 GM/dL (10.7-15.3); LYMPH % 8.7 % (8-40); MCH 25.6 pg (25.7-33.7); MCHC 33.4 g/dl (32.0-36.0); MEAN CELL VOLUME 76.6 fl (80-96); MEAN PLT VOLUME 7.8 fl (7.5-11.1); MONO % 9.9 % (3.8-10.2); PLATELET COUNT 455 10^3/uL (134-434); RBC 2.79 M/mm3 (3.60-5.2); RDW 18.7 % (11.6-15.6); WHITE BLOOD COUNT 13.5 K/mm3 (4.0-10.0)
[2022-06-18] MEDS: MULTIVIT-MINERALS ORAL LIQUID GT SCH (10:14)
[2022-06-18] MEDS: ACETAMINOPHEN 650 MG/20.3 ML ORAL SOLUTION (CUPS) PEG PRN (10:18)
[2022-06-18] MEDS: levETIRAcetam 500 MG/5 ML ORAL SOLUTION (UNIT-DOSE CUPS) PEG SCH ×2 (10:19→21:45)
[2022-06-18 10:28] LABS: ALBUMIN 1.5 g/dl (3.4-5.0); BLOOD UREA NITROGEN 13.2 mg/dL (7-18)
[2022-06-18 10:31] LABS: BILIRUBIN,TOTAL 0.5 mg/dL (0.2-1); CREATININE 0.5 mg/dL (0.55-1.3); TOT PROT 5.9 g/dl (6.4-8.2)
[2022-06-18] MEDS: SCOPOLAMINE HYDROBROMIDE 1 PATCH PATCH.TD72 TD SCH (12:51)
[2022-06-18] MEDS: fentaNYL 25mcg/hr PATCH.TD72 TD SCH (12:51)
[2022-06-18] MEDS: FENTANYL PATCH WASTE TD PRN (12:52)
[2022-06-18] MEDS: SODIUM HYPOCHLORITE 0.5% 473 ML- BULK BOTTLE TP SCH (12:57)
[2022-06-18] MEDS: COLLAGENASE CLOSTRIDIUM HIST. 30 GRAMS TUBE TP SCH (12:58)
[2022-06-19] MEDS: PIPERACILLIN/TAZOB 4.5 GM 4.5 GM in DEXTROSE 5%-WATER 100 ML IVPB SCH ×2 (02:00→10:02)
[2022-06-19] MEDS: levETIRAcetam 500 MG/5 ML ORAL SOLUTION (UNIT-DOSE CUPS) PEG SCH ×2 (10:02→22:11)
[2022-06-19] MEDS: AMINO ACIDS/PROTEIN HYDROLYS 30 ML LIQUID.PKT PEG SCH ×3 (10:02→17:26)
[2022-06-19] MEDS: MULTIVIT-MINERALS ORAL LIQUID GT SCH (10:03)
[2022-06-19] MEDS: COLLAGENASE CLOSTRIDIUM HIST. 30 GRAMS TUBE TP SCH (11:31)
[2022-06-19] MEDS: SODIUM HYPOCHLORITE 0.5% 473 ML- BULK BOTTLE TP SCH (11:32)
[2022-06-19 11:44] LABS: HEMATOCRIT 24.5 % (32.4-45.2); HEMOGLOBIN 7.6 GM/dL (10.7-15.3); MCH 24.8 pg (25.7-33.7); MCHC 31.2 g/dl (32.0-36.0); MEAN CELL VOLUME 79.7 fl (80-96); MEAN PLT VOLUME 8.5 fl (7.5-11.1); PLATELET COUNT 477 10^3/uL (134-434); RBC 3.08 M/mm3 (3.60-5.2); RDW 19.1 % (11.6-15.6); WHITE BLOOD COUNT 11.1 K/mm3 (4.0-10.0)
[2022-06-19 12:14] LABS: ALBUMIN 1.6 g/dl (3.4-5.0); BLOOD UREA NITROGEN 13.2 mg/dL (7-18)
[2022-06-19 12:16] LABS: CREATININE 0.5 mg/dL (0.55-1.3)
[2022-06-19 12:18] LABS: BILIRUBIN,TOTAL 0.5 mg/dL (0.2-1); TOT PROT 6.3 g/dl (6.4-8.2)
[2022-06-19] MEDS: MEROPENEM 1 GM in DEXTROSE 5%-WATER 100 ML IVPB SCH (17:26)
[2022-06-20] MEDS: ACETAMINOPHEN 650 MG/20.3 ML ORAL SOLUTION (CUPS) PEG PRN (00:07)
[2022-06-20] MEDS: MEROPENEM 1 GM in DEXTROSE 5%-WATER 100 ML IVPB SCH ×3 (01:30→17:26)
[2022-06-20] MEDS: AMINO ACIDS/PROTEIN HYDROLYS 30 ML LIQUID.PKT PEG SCH ×3 (08:25→17:26)
[2022-06-20] MEDS: MULTIVIT-MINERALS ORAL LIQUID GT SCH (10:29)
[2022-06-20] MEDS: levETIRAcetam 500 MG/5 ML ORAL SOLUTION (UNIT-DOSE CUPS) PEG SCH ×2 (10:29→22:22)
[2022-06-20] MEDS: COLLAGENASE CLOSTRIDIUM HIST. 30 GRAMS TUBE TP SCH (10:30)
[2022-06-20] MEDS: SODIUM HYPOCHLORITE 0.5% 473 ML- BULK BOTTLE TP SCH (10:30)
[2022-06-20 12:56] LABS: HEMATOCRIT 20.3 % (32.4-45.2); MCH 25.3 pg (25.7-33.7); MCHC 32.1 g/dl (32.0-36.0); MEAN CELL VOLUME 78.9 fl (80-96); MEAN PLT VOLUME 8.1 fl (7.5-11.1); PLATELET COUNT 448 10^3/uL (134-434); RBC 2.57 M/mm3 (3.60-5.2); RDW 19.3 % (11.6-15.6); WHITE BLOOD COUNT 12.5 K/mm3 (4.0-10.0)
[2022-06-20 13:12] LABS: CALCIUM 7.9 mg/dL (8.5-10.1)
[2022-06-20 13:13] LABS: ALBUMIN 1.4 g/dl (3.4-5.0); BLOOD UREA NITROGEN 17.8 mg/dL (7-18); HEMOGLOBIN 6.5 GM/dL (10.7-15.3)
[2022-06-20 13:16] LABS: BILIRUBIN,TOTAL 0.7 mg/dL (0.2-1); CREATININE 0.5 mg/dL (0.55-1.3)
[2022-06-21] MEDS: MEROPENEM 1 GM in DEXTROSE 5%-WATER 100 ML IVPB SCH ×3 (01:14→17:41)
[2022-06-21] MEDS: MULTIVIT-MINERALS ORAL LIQUID GT SCH (09:01)
[2022-06-21] MEDS: levETIRAcetam 500 MG/5 ML ORAL SOLUTION (UNIT-DOSE CUPS) PEG SCH ×2 (09:02→23:00)
[2022-06-21] MEDS: AMINO ACIDS/PROTEIN HYDROLYS 30 ML LIQUID.PKT PEG SCH ×3 (09:02→17:41)
[2022-06-21 10:34] LABS: BASO % 0.2 % (0-2.0); EOS % 0.3 % (0-4.5); HEMATOCRIT 23.1 % (32.4-45.2); LYMPH % 9.3 % (8-40); MCH 26.4 pg (25.7-33.7); MCHC 34.4 g/dl (32.0-36.0); MEAN CELL VOLUME 76.6 fl (80-96); MEAN PLT VOLUME 7.8 fl (7.5-11.1); MONO % 7.2 % (3.8-10.2); PLATELET COUNT 496 10^3/uL (134-434); RBC 3.02 M/mm3 (3.60-5.2); RDW 18.2 % (11.6-15.6); WHITE BLOOD COUNT 11.6 K/mm3 (4.0-10.0)
[2022-06-21 11:10] LABS: ALBUMIN 1.6 g/dl (3.4-5.0); CALCIUM 8.3 mg/dL (8.5-10.1)
[2022-06-21 11:13] LABS: CREATININE 0.4 mg/dL (0.55-1.3)
[2022-06-21 11:15] LABS: BILIRUBIN,TOTAL 0.5 mg/dL (0.2-1); TOT PROT 6.4 g/dl (6.4-8.2)
[2022-06-21] MEDS: SCOPOLAMINE HYDROBROMIDE 1 PATCH PATCH.TD72 TD SCH (11:57)
[2022-06-21] MEDS: COLLAGENASE CLOSTRIDIUM HIST. 30 GRAMS TUBE TP SCH (12:40)
[2022-06-21] MEDS: SODIUM HYPOCHLORITE 0.5% 473 ML- BULK BOTTLE TP SCH (12:40)
[2022-06-21] MEDS: ACETAMINOPHEN 650 MG/20.3 ML ORAL SOLUTION (CUPS) PEG PRN (14:46)
[2022-06-21] MEDS: FENTANYL PATCH WASTE TD PRN (18:01)
[2022-06-22] MEDS: MEROPENEM 1 GM in DEXTROSE 5%-WATER 100 ML IVPB SCH ×3 (01:42→17:30)
[2022-06-22] MEDS: AMINO ACIDS/PROTEIN HYDROLYS 30 ML LIQUID.PKT PEG SCH ×3 (08:50→17:29)
[2022-06-22] MEDS: MULTIVIT-MINERALS ORAL LIQUID GT SCH (10:55)
[2022-06-22] MEDS: levETIRAcetam 500 MG/5 ML ORAL SOLUTION (UNIT-DOSE CUPS) PEG SCH ×2 (10:55→22:37)
[2022-06-22] MEDS: SODIUM HYPOCHLORITE 0.5% 473 ML- BULK BOTTLE TP SCH (10:57)
[2022-06-22] MEDS: COLLAGENASE CLOSTRIDIUM HIST. 30 GRAMS TUBE TP SCH (10:57)
[2022-06-23] MEDS: MEROPENEM 1 GM in DEXTROSE 5%-WATER 100 ML IVPB SCH ×3 (02:08→17:26)
[2022-06-23] MEDS: AMINO ACIDS/PROTEIN HYDROLYS 30 ML LIQUID.PKT PEG SCH ×3 (09:09→17:26)
[2022-06-23] MEDS: levETIRAcetam 500 MG/5 ML ORAL SOLUTION (UNIT-DOSE CUPS) PEG SCH ×2 (10:00→22:27)
[2022-06-23 10:05] LABS: HEMATOCRIT 23.6 % (32.4-45.2); HEMOGLOBIN 7.7 GM/dL (10.7-15.3); MCH 25.7 pg (25.7-33.7); MCHC 32.7 g/dl (32.0-36.0); MEAN CELL VOLUME 78.5 fl (80-96); MEAN PLT VOLUME 8.1 fl (7.5-11.1); PLATELET COUNT 515 10^3/uL (134-434); RBC 3.01 M/mm3 (3.60-5.2); RDW 18.2 % (11.6-15.6)
[2022-06-23] MEDS: MULTIVIT-MINERALS ORAL LIQUID GT SCH (10:06)
[2022-06-23 10:40] LABS: ALBUMIN 1.4 g/dl (3.4-5.0)
[2022-06-23 10:41] LABS: BLOOD UREA NITROGEN 16.8 mg/dL (7-18); CALCIUM 8.1 mg/dL (8.5-10.1); MAGNESIUM 2.1 mg/dL (1.8-2.4)
[2022-06-23 10:44] LABS: CREATININE 0.3 mg/dL (0.55-1.3)
[2022-06-23 10:45] LABS: BILIRUBIN,TOTAL 0.3 mg/dL (0.2-1)
[2022-06-23] MEDS: SODIUM HYPOCHLORITE 0.5% 473 ML- BULK BOTTLE TP SCH (16:08)
[2022-06-23] MEDS: COLLAGENASE CLOSTRIDIUM HIST. 30 GRAMS TUBE TP SCH (16:09)
[2022-06-24] MEDS: MEROPENEM 1 GM in DEXTROSE 5%-WATER 100 ML IVPB SCH ×3 (01:50→17:19)
[2022-06-24] MEDS: AMINO ACIDS/PROTEIN HYDROLYS 30 ML LIQUID.PKT PEG SCH ×3 (08:50→17:19)
[2022-06-24] MEDS: levETIRAcetam 500 MG/5 ML ORAL SOLUTION (UNIT-DOSE CUPS) PEG SCH ×2 (10:59→21:36)
[2022-06-24] MEDS: MULTIVIT-MINERALS ORAL LIQUID GT SCH (10:59)
[2022-06-24] MEDS: SODIUM HYPOCHLORITE 0.5% 473 ML- BULK BOTTLE TP SCH (13:55)
[2022-06-24] MEDS: COLLAGENASE CLOSTRIDIUM HIST. 30 GRAMS TUBE TP SCH (13:55)
[2022-06-25] MEDS: MEROPENEM 1 GM in DEXTROSE 5%-WATER 100 ML IVPB SCH ×3 (01:24→18:44)
[2022-06-25] MEDS: MULTIVIT-MINERALS ORAL LIQUID GT SCH (09:31)
[2022-06-25] MEDS: levETIRAcetam 500 MG/5 ML ORAL SOLUTION (UNIT-DOSE CUPS) PEG SCH ×2 (09:31→21:22)
[2022-06-25] MEDS: SODIUM HYPOCHLORITE 0.5% 473 ML- BULK BOTTLE TP SCH (09:31)
[2022-06-25] MEDS: AMINO ACIDS/PROTEIN HYDROLYS 30 ML LIQUID.PKT PEG SCH ×3 (09:31→18:44)
[2022-06-25] MEDS: COLLAGENASE CLOSTRIDIUM HIST. 30 GRAMS TUBE TP SCH (09:32)
[2022-06-25 17:39] LABS: MEAN PLT VOLUME 8.4 fl (7.5-11.1)
[2022-06-25 17:42] LABS: HEMATOCRIT 24.6 % (32.4-45.2); HEMOGLOBIN 7.7 GM/dL (10.7-15.3); MCH 25.9 pg (25.7-33.7); MCHC 31.3 g/dl (32.0-36.0); MEAN CELL VOLUME 82.7 fl (80-96); PLATELET COUNT 435 10^3/uL (134-434); RBC 2.97 M/mm3 (3.60-5.2); RDW 19.2 % (11.6-15.6); WHITE BLOOD COUNT 9.4 K/mm3 (4.0-10.0)
[2022-06-25 17:59] LABS: CALCIUM 8.1 mg/dL (8.5-10.1)
[2022-06-25 18:00] LABS: ALBUMIN 1.4 g/dl (3.4-5.0); BLOOD UREA NITROGEN 19.4 mg/dL (7-18); MAGNESIUM 2.2 mg/dL (1.8-2.4)
[2022-06-25 18:03] LABS: CREATININE 0.4 mg/dL (0.55-1.3)
[2022-06-25 18:04] LABS: BILIRUBIN,TOTAL 0.2 mg/dL (0.2-1)
[2022-06-25 18:05] LABS: TOT PROT 6.1 g/dl (6.4-8.2)
[2022-06-26] MEDS: MEROPENEM 1 GM in DEXTROSE 5%-WATER 100 ML IVPB SCH ×2 (01:09→09:04)
[2022-06-26] MEDS: ACETAMINOPHEN 650 MG/20.3 ML ORAL SOLUTION (CUPS) PEG PRN ×2 (02:11→14:57)
[2022-06-26 03:33] LABS: HEMATOCRIT 26.8 % (32.4-45.2); HEMOGLOBIN 8.5 GM/dL (10.7-15.3); MCH 25.2 pg (25.7-33.7); MCHC 31.9 g/dl (32.0-36.0); MEAN CELL VOLUME 78.8 fl (80-96); PLATELET COUNT 581 10^3/uL (134-434)
[2022-06-26 03:45] LABS: WHITE BLOOD COUNT 27.1 K/mm3 (4.0-10.0)
[2022-06-26 04:45] LABS: ANISOCYTOSIS 2+; MACROCYTOSIS 0; OVALOCYTE 2+; TARGET CELLS 1+
[2022-06-26] MEDS ORDERED: SODIUM CHLORIDE 500 ML IV STA ×2 (05:43→06:34)
[2022-06-26] MEDS ORDERED: VANCOMYCIN 1 GM in D5W (PRE-DOCKED) 1,000 MG/250 ML IVPB ONE (05:44)
[2022-06-26 05:55] LABS: ALLENS TEST POSITIVE; ARTERIAL BLD GAS O2 SATURATION 99.8 % (95-98); ARTERIAL BLOOD GAS BASE EXCESS 2.4 mmol/L (-2-2); VENT MODE A/C; VENT RATE 14
[2022-06-26] MEDS ORDERED: VANCOMYCIN/WATER FOR INJ (PEG) 1,000 MG/200 ML BAG IVPB ONE (06:30)
[2022-06-26 06:33] LABS: EPI CELLS 18 /uL (0-25.1); HYALINE CASTS 40 /uL (0-3.1); URINE APPEARANCE TURBID; URINE BACTERIA 23 /uL (0-1359); URINE BILIRUBIN 1+ (NEGATIVE); URINE COLOR RED; URINE GLUCOSE (UA) NEGATIVE (NEGATIVE); URINE KETONE NEGATIVE (NEGATIVE); URINE LEUK ESTERASE 3+ (NEGATIVE); URINE NITRITE NEGATIVE (NEGATIVE); URINE PROTEIN 3+ (NEGATIVE); URINE UROBILINOGEN 0.2 mg/dL (0.2-1.0); URINE WBC 2747 /uL (0-25.8)
[2022-06-26 07:27] LABS: URINE RBC 43527.5 /uL (0-23.9); YEAST NEGATIVE (NEGATIVE)
[2022-06-26] MEDS: AMINO ACIDS/PROTEIN HYDROLYS 30 ML LIQUID.PKT PEG SCH ×3 (09:04→18:04)
[2022-06-26] MEDS: COLLAGENASE CLOSTRIDIUM HIST. 30 GRAMS TUBE TP SCH (09:12)
[2022-06-26] MEDS: levETIRAcetam 500 MG/5 ML ORAL SOLUTION (UNIT-DOSE CUPS) PEG SCH ×2 (09:12→22:33)
[2022-06-26] MEDS: SODIUM HYPOCHLORITE 0.5% 473 ML- BULK BOTTLE TP SCH (09:12)
[2022-06-26] MEDS: MULTIVIT-MINERALS ORAL LIQUID GT SCH (09:15)
[2022-06-26 09:45] LABS: HEMATOCRIT 21.2 % (32.4-45.2); MCHC 31.7 g/dl (32.0-36.0); MEAN PLT VOLUME 7.8 fl (7.5-11.1); PLATELET COUNT 493 10^3/uL (134-434); RBC 2.68 M/mm3 (3.60-5.2); RDW 19.2 % (11.6-15.6); WHITE BLOOD COUNT 19.7 K/mm3 (4.0-10.0)
[2022-06-26 10:03] LABS: HEMOGLOBIN 6.7 GM/dL (10.7-15.3)
[2022-06-26 11:21] LABS: CALCIUM 8.1 mg/dL (8.5-10.1)
[2022-06-26 11:22] LABS: ALBUMIN 1.4 g/dl (3.4-5.0); BLOOD UREA NITROGEN 23.2 mg/dL (7-18); MAGNESIUM 2.1 mg/dL (1.8-2.4)
[2022-06-26 11:25] LABS: CREATININE 0.5 mg/dL (0.55-1.3)
[2022-06-26 11:26] LABS: BILIRUBIN,TOTAL 0.2 mg/dL (0.2-1); TOT PROT 5.9 g/dl (6.4-8.2)
[2022-06-26] MEDS: morphine SULFATE 4 MG/ML VIAL IVPUSH PRN (18:39)
[2022-06-27] MEDS: AMINO ACIDS/PROTEIN HYDROLYS 30 ML LIQUID.PKT PEG SCH ×3 (10:18→17:42)
[2022-06-27] MEDS: levETIRAcetam 500 MG/5 ML ORAL SOLUTION (UNIT-DOSE CUPS) PEG SCH ×2 (10:18→22:49)
[2022-06-27] MEDS: MULTIVIT-MINERALS ORAL LIQUID GT SCH (10:18)
[2022-06-27] MEDS: COLLAGENASE CLOSTRIDIUM HIST. 30 GRAMS TUBE TP SCH (15:42)
[2022-06-27] MEDS: SODIUM HYPOCHLORITE 0.5% 473 ML- BULK BOTTLE TP SCH (15:42)
[2022-06-27] MEDS: morphine SULFATE 4 MG/ML VIAL IVPUSH PRN (15:52)
[2022-06-28 09:26] LABS: HEMATOCRIT 28.4 % (32.4-45.2); HEMOGLOBIN 9.4 GM/dL (10.7-15.3); MCH 26.5 pg (25.7-33.7); MCHC 33.1 g/dl (32.0-36.0); MEAN CELL VOLUME 79.9 fl (80-96); MEAN PLT VOLUME 8.3 fl (7.5-11.1); PLATELET COUNT 476 10^3/uL (134-434); RBC 3.55 M/mm3 (3.60-5.2); RDW 18.1 % (11.6-15.6); WHITE BLOOD COUNT 11.4 K/mm3 (4.0-10.0)
[2022-06-28 09:52] LABS: ALBUMIN 1.5 g/dl (3.4-5.0); MAGNESIUM 2.2 mg/dL (1.8-2.4)
[2022-06-28 09:55] LABS: CREATININE 0.4 mg/dL (0.55-1.3)
[2022-06-28 09:56] LABS: TOT PROT 6.1 g/dl (6.4-8.2)
[2022-06-28 09:57] LABS: BILIRUBIN,TOTAL 0.3 mg/dL (0.2-1)
[2022-06-28] MEDS: levETIRAcetam 500 MG/5 ML ORAL SOLUTION (UNIT-DOSE CUPS) PEG SCH ×2 (10:38→21:46)
[2022-06-28] MEDS: AMINO ACIDS/PROTEIN HYDROLYS 30 ML LIQUID.PKT PEG SCH ×3 (10:38→18:30)
[2022-06-28] MEDS: MULTIVIT-MINERALS ORAL LIQUID GT SCH (10:38)
[2022-06-28] MEDS: morphine SULFATE 4 MG/ML VIAL IVPUSH PRN (13:35)
[2022-06-28] MEDS: COLLAGENASE CLOSTRIDIUM HIST. 30 GRAMS TUBE TP SCH (15:28)
[2022-06-28] MEDS: SODIUM HYPOCHLORITE 0.5% 473 ML- BULK BOTTLE TP SCH (15:28)
[2022-06-29] MEDS: morphine SULFATE 4 MG/ML VIAL IVPUSH PRN ×3 (03:23→20:45)
[2022-06-29] MEDS: AMINO ACIDS/PROTEIN HYDROLYS 30 ML LIQUID.PKT PEG SCH ×3 (07:57→16:34)
[2022-06-29] MEDS: SODIUM HYPOCHLORITE 0.5% 473 ML- BULK BOTTLE TP SCH (11:45)
[2022-06-29] MEDS: levETIRAcetam 500 MG/5 ML ORAL SOLUTION (UNIT-DOSE CUPS) PEG SCH ×2 (11:45→21:07)
[2022-06-29] MEDS: FERROUS SO4 300 MG/5 ML ORAL SOLN UNIT DOSE CUPS GT SCH ×2 (11:45→21:07)
[2022-06-29] MEDS: MULTIVIT-MINERALS ORAL LIQUID GT SCH (11:45)
[2022-06-29] MEDS: COLLAGENASE CLOSTRIDIUM HIST. 30 GRAMS TUBE TP SCH (11:46)
[2022-06-30] MEDS: AMINO ACIDS/PROTEIN HYDROLYS 30 ML LIQUID.PKT PEG SCH ×3 (11:34→18:54)
[2022-06-30] MEDS: SODIUM HYPOCHLORITE 0.5% 473 ML- BULK BOTTLE TP SCH (11:35)
[2022-06-30] MEDS: levETIRAcetam 500 MG/5 ML ORAL SOLUTION (UNIT-DOSE CUPS) PEG SCH ×2 (11:35→22:04)
[2022-06-30] MEDS: FERROUS SO4 300 MG/5 ML ORAL SOLN UNIT DOSE CUPS GT SCH ×2 (11:35→22:04)
[2022-06-30] MEDS: COLLAGENASE CLOSTRIDIUM HIST. 30 GRAMS TUBE TP SCH (11:36)
[2022-06-30] MEDS: MULTIVIT-MINERALS ORAL LIQUID GT SCH (11:51)
[2022-06-30 19:15] VITALS: RESP 24
[2022-06-30] MEDS: morphine SULFATE 4 MG/ML VIAL IVPUSH PRN (22:08)
[2022-06-30 23:34] VITALS: BP 113/66; PULSE 100; TEMP 99
== END 2022-06-30 23:31 | disposition home health service (06) | DRG 870 ==
LOC: JER 13:48 → JERBED 17:04 → J5S 06-06 18:58
PROVIDERS: ADMIT Hospitalist; ATTEND Family Medicine
PROC: 5A1955Z Respiratory Ventilation, Greater than 96 Consecutive Hours (ICD-10-PCS; principal; 2022-06-05)
PROC: 30233N1 Transfusion of Nonautologous Red Blood Cells into Peripheral Vein, Percutaneous Approach (ICD-10-PCS; 2022-06-06)
DX: A41.59 Other Gram-negative sepsis (principal); L89.154 Pressure ulcer of sacral region, stage 4; U07.1 COVID-19; G93.1 Anoxic brain damage, not elsewhere classified; N39.0 Urinary tract infection, site not specified; J96.10 Chronic respiratory failure, unspecified whether with hypoxia or hypercapnia; N17.9 Acute kidney failure, unspecified; E87.1 Hypo-osmolality and hyponatremia; Z99.11 Dependence on respirator [ventilator] status; Z16.12 Extended spectrum beta lactamase (ESBL) resistance; E03.9 Hypothyroidism, unspecified; I10 Essential (primary) hypertension; D64.9 Anemia, unspecified; R56.9 Unspecified convulsions; Z93.1 Gastrostomy status; Z93.0 Tracheostomy status; E86.0 Dehydration; E87.6 Hypokalemia; B96.20 Unspecified Escherichia coli [E. coli] as the cause of diseases classified elsewhere; D72.829 Elevated white blood cell count, unspecified
CPT/HCPCS: 0241U-QW; 36415; 36430; 36600; 70450-TC; 71045-TC-FY; 71275-TC; 80048; 80053; 81003; 82272; 82553; 82728; 82803; 82962; 83540; 83550; 83605; 83690; 83735; 84100; 84443; 84484; 85025; 85027; 85379; 85610; 85730; 86140; 86850; 86900; 86901; 86922; 87040; 87070; 87077; 87086; 87186; 87205; 93005; 93010; 94002; 99291; C9803-CS; E0372; P9058; U0003; U0005